=== PATIENT | female | born 1985 | race Caucasian/White ===

== ENCOUNTER → 2017-05-20 | Outpatient (CLI) | payer BC ==
--- NOTE | ~2017-05-20 | US128 ---
[id number] [facility]. [facility] [address]. [place], [place] [address] [id number] O MR#: [id number] Acc #: [id number] NAME: MARIBELL GALLEGOS : 1985 SEX: F STUDY DATE/TIME: 05/20/2017 14:37 UNIT: [facility]US ROOM: STUDY DESCRIPTION: Thyroid Attending Physician: Lia Anderson M.D. Referring Physician: Lia Anderson M.D. Ordering Physician: Lia Anderson M.D. Primary Care Physician: Lia Anderson M.D. MEDICAL IMAGING REPORT This report is preliminary unless electronic signature is present EXAM Thyroid ultrasound, 05/20/2017 HISTORY Follow up for known asymptomatic left thyroid nodule. COMPARISON Prior ultrasound 08/28/2015. FINDINGS The right lobe of the gland is normal in size and echotexture, without mass. There is a solid nodule, hypoechoic at the lower pole of the left lobe of the gland. It measures 2.3 x 1.5 x 1.6 cm. On the prior exam, it was measured at 1.8 x 1.2 x 2.2 cm. It is overall not convincingly significantly changed in size. It was also seen on an ultrasound of 05/23/2014 and at that time was measured at 2.1 x 1.5 x 1.3 cm. IMPRESSION Dominant left lower pole hypoechoic solid thyroid nodule, which is essentially unchanged since 05/23/2014. Dictated by... Han Bae M.D. THIS IS AN ELECTRONICALLY VERIFIED REPORT Han Bae M.D. at 05/21/2017 3:52 PM TEV/red TD: 05/20/2017 22:01 JOB #: [id number] MEDICAL IMAGING REPORT Page 1 of 1 COPY
== END | disposition home or self-care (01) ==
LOC: CGUS 05-11 13:30
DX: E04.1 Nontoxic single thyroid nodule (principal)
CPT/HCPCS: 76536